=== PATIENT | male | born 1960 | race Caucasian/White ===

== ENCOUNTER 2025-02-22 00:16 | Inpatient (IN) | payer MEDICARE, SELFPAY ==
[~2025-02-22] VITALS: Ht 182.9 cm; Wt 105.2 kg
[2025-02-22] MEDS ORDERED: LIDOCAINE 2% 100 MG/5 ML SDV (FOR ANES.) As Ordered ONE (01:35)
[2025-02-22] MEDS ORDERED: ONDANSETRON 4MG 2ML VIAL As Ordered ONE (01:35)
[2025-02-22] MEDS ORDERED: dexAMETHasone 4 MG/ML 1 ML VIAL As Ordered ONE (01:35)
[2025-02-22] MEDS ORDERED: MIDAZOLAM INJ 2 MG/2 ML VIAL As Ordered ONE (01:37)
[2025-02-22] MEDS ORDERED: ROCURONIUM BROMIDE 50MG/5ML VIAL As Ordered ONE (01:43)
[2025-02-22] MEDS ORDERED: ROPIvacaine 0.5% 30ML VIAL As Ordered ONE (02:01)
[2025-02-22] MEDS: ROPIvacaine 0.5% 30ML VIAL PN ONE (02:05)
[2025-02-22] MEDS: LR 1,000 ML IV SCH (02:05)
[2025-02-22] MEDS ORDERED: MOM 30 ML SUSPENSION UDC PO PRN (02:35)
[2025-02-22] MEDS ORDERED: ACETAMINOPHEN 1000MG/100ML IV BAG As Ordered ONE (02:55)
[2025-02-22] MEDS ORDERED: KETOROLAC 30 MG/ML 1 ML VIAL As Ordered ONE (02:57)
[2025-02-22 04:30] VITALS: BP 108/65; TEMP 97.9; O2SAT 98
[2025-02-22] MEDS: PIPERACILLIN/TAZOBACTAM SOD 4.5 GM in DEXTROSE 5% (D5W) ADV/MINI-BAG 50 ML IV SCH (04:41)
[2025-02-22 05:45] LABS: PLATELET COUNT, AUTOMATED 219 10^3/uL (150-450)
[2025-02-22 06:14] LABS: ALT/SGPT 19 U/L (7.0-40); AST/SGOT 16 U/L (<34); CALCIUM LEVEL 9.2 MG/DL (8.3-10.6); CARBON DIOXIDE LEVEL 25 MMOL/L (20-31); CHLORIDE LEVEL 107 MMOL/L (98-107); CREATININE FOR GFR 0.75 MG/DL (0.70-1.30); GLOMERULAR FILTRATION RATE > 90.0 (>49); POTASSIUM SERUM 3.9 MMOL/L (3.5-5.1); SODIUM LEVEL 142 MMOL/L (136-145)
[2025-02-22] MEDS ORDERED: PRAM1TAB7 PO (07:27)
[2025-02-22] MEDS ORDERED: HYDR-3713 PO (07:27)
[2025-02-22] MEDS ORDERED: SUMA50TA2 PO (07:27)
[2025-02-22] MEDS ORDERED: SILD100T7 PO (07:27)
[2025-02-22] MEDS ORDERED: HOME MED LIST COMPLETE! XX SCH (07:30)
[2025-02-22] MEDS: PRAMIPEXOLE 1 MG TAB PO SCH (08:55)
[2025-02-22 12:14] VITALS: BP 129/75; TEMP 98.8; O2SAT 95
[2025-02-22] MEDS: PERCOCET 5MG/325MG TAB PO PRN ×2 (13:01→21:16)
[2025-02-22] MEDS: HEPARIN SOD 5000 UNITS/ML 1 ML VIAL/SYRINGE SC SCH (14:16)
[2025-02-22 21:00] VITALS: BP 136/81; TEMP 99; O2SAT 96
[2025-02-23] MEDS: KETOROLAC 30 MG/ML 1 ML VIAL IV ONE (03:51)
[2025-02-23] MEDS: MORPHINE 4 MG/ML 1 ML VIAL IV ONE (03:51)
[2025-02-23] MEDS: METHOCARBAMOL 1,000 MG/10 ML VIAL IV ONE (03:59)
[2025-02-23 04:31] VITALS: BP 130/78; TEMP 98.9; O2SAT 96
[2025-02-23 07:26] LABS: PLATELET COUNT, AUTOMATED 255 10^3/uL (150-450)
[2025-02-23] MEDS ORDERED: PERCOCET PO (10:26)
[2025-02-23] MEDS ORDERED: CEPH500C PO (10:26)
== END 2025-02-23 11:05 | disposition home or self-care (01) | DRG 316 ==
LOC: M ED 00:16 → M SDC 01:47 → M ED INP 01:48 → M MSPAV 04:22 → OBSVTOIN 12:25
PROVIDERS: ADMIT Family Medicine; ATTEND Internal Medicine
PROC: 0LD70ZZ Extraction of Right Hand Tendon, Open Approach (ICD-10-PCS; principal; 2025-02-22 02:00)
DX: S69.81XA Other specified injuries of right wrist, hand and finger(s), initial encounter (principal); G25.81 Restless legs syndrome; X12.XXXA Contact with other hot fluids, initial encounter; Y93.89 Activity, other specified; Y99.8 Other external cause status; Y92.009 Unspecified place in unspecified non-institutional (private) residence as the place of occurrence of the external cause; G43.909 Migraine, unspecified, not intractable, without status migrainosus; W31.89XA Contact with other specified machinery, initial encounter